=== PATIENT | female | born 1965 | race Caucasian/White ===

== ENCOUNTER 2016-08-06 10:55 | Emergency (ER) ==
[2016-08-06 11:11] LABS: MANUAL DIFF NEEDED? NO
[2016-08-06 11:12] LABS: BASO% 0.3 % (0.0-0.8); EOS# 0.07 X1000 (0.0-0.7); EOS% 0.6 % (0.0-10.0); HEMATOCRIT 46.2 % (37.0-47.0); IMM GRAN# 0.04 X1000 (0.0-0.04); IMM GRAN% 0.3 % (0.0-0.5); LYMPH# 1.89 X1000 (1.2-3.4); LYMPH% 15.4 % (20.5-51.1); MCH 30.2 PG (27-31); MCHC 34.6 g/dL (33-37); MCV 87.3 FL (81-99); MONO# 0.98 X1000 (0.11-0.59); MPV 10.7 FL (7.4-10.4); NEUT% 75.4 % (42.2-75.2); PLT 429 X1000 (130-400); RBC 5.29 XMIL (4.2-5.4)
[2016-08-06 11:30] LABS: AGAP 15; ALBUMIN 5.2 g/dL (3.5-5.0); ALKALINE PHOSPHATASE 117 U/L (32-104); BUN 10 mg/dL (8-22); CALCIUM 10.4 mg/dL (8.8-10.2); CHLORIDE 101 mmol/L (98-107); COSMO 278; GOT 32 U/L (10-30); GPT 23 U/L (10-36); POTASSIUM 3.4 mmol/L (3.5-5.1); SODIUM 139 mmol/L (136-145); TCO2 24 mmol/L (25-35); TOTAL PROTEIN 8.3 g/dL (6.3-8.3)
[2016-08-06 11:40] LABS: FREE T4 0.97 ng/dL (0.93-1.70)
--- NOTE | 2016-08-06 12:06 | PROVIDER DOCUMENTATION ---
HPI-Psychological Disorder <Velma Rojas - Last Filed: 08/06/16 12:42> <Ady Nunn - Last Filed: 08/06/16 19:54> - General Source: patient, EMS - History of Present Illness-Psych Onset/Duration: reports: 3 days ago Timing: reports: still present, getting worse Severity: reports: severe Situational problems related to:: reports: other (family) Psychiatric Complaints: reports: agitated, anxiety, depressed, frustrated, restlessness, suicidal ideation Substance Use: reports: none presently/history of abuse, alcohol Previous psych related hospitalizations?: Yes Patient arrived by:: police Similar Symptoms Previously?: Yes Recently seen or treated by another doctor?: No - Suicidal Ideation Suicide Risk Assessment: depressed, prior attempt, drug or ETOH abuse (hx), no social supports, frightened friends-family Clinician's estimation of suicide risk?: uncertain risk <Soni Wise - Last Filed: 08/06/16 19:55> - General Chief Complaint: Psych Stated Complaint: Psych,SI Time Seen by Provider: 08/06/16 12:05 Allergies/Adverse Reactions: Patient Allergies Allergy/AdvReac Type Severity Reaction Status Date / Time No Known Allergies Allergy Verified 08/06/16 11:00 Home Medications: Home Medication List Medication Instructions Recorded Confirmed Last Taken Type Fluoxetine HCl [Prozac] 60 mg PO QAM 03/10/16 08/06/16 03/03/16 07:00 History Lisinopril 20 mg PO DAILY 08/06/16 08/06/16 Unknown History - History of Present Illness-Psych Nature of Presenting Problem: 51 yo female presents to ER via EMS with c/o SI. Police were on scene. She is very emotional and changes expressions fast. She states that she is family issues saying "they know I take suboxone and that I called the ambulance and the police." When asked questions she responds "I don't want you caught up in the middle of it." She denies hallucinations. She has attempted suicide in the past but would not tell me how many times or how. (Soni Wise) Review of Systems - Adult - REVIEW OF SYSTEMS - ADULT Constitutional: reports: no symptoms reported Eyes: reports: no symptoms reported Ears, Nose, Mouth & Throat: reports: no symptoms reported Cardiovascular: reports: no symptoms reported Respiratory: reports: no symptoms reported Gastrointestinal: reports: no symptoms reported Genitourinary: reports: no symptoms reported Musculoskeletal: reports: no symptoms reported Integumentary: reports: no symptoms reported Neurological: reports: no symptoms reported Psychiatric: reports: see HPI, anxiety, suicidal thoughts Endocrine: reports: no symptoms reported Hematologic/Lymphatic: reports: no symptoms reported Allergic/Immunologic: reports: no symptoms reported All Other Systems: Reviewed and Negative <Wise. - Last Filed: 08/06/16 19:55> Past History - Adult - PAST MEDICAL HISTORY-ADULT Review of Records: reports: Old Records Reviewed, Nursing Assessment Review, Medications Reviewed, Social history reviewed & non-contributory. 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 on dangers of tobacco.: Discussed manners to quit use, and f/u contacts for add'l counseling. Substance Use: none presently/history of abuse, alcohol Alcohol Use Frequency: sober (former use) Living Situation: family <. - Last Filed: 08/06/16 19:55> Physical Exam-Psych Focus - Physical Exam-Psych Initial Vital Signs Reviewed: Yes Appearance: neat, alert, anxious, impaired insight, slow to respond Neurological: alert, oriented x 3, agitated, anxious, depressed affect, flat Behavior/Eye Contact/Speech: cooperative, avoids eye contact, refused to answer , decreased rate of speech Thoughts/Hallucinations: no apparent hallucination, flight of ideas, paranoid HENMT: normocephalic/atraumatic Respiratory: no respiratory distress Cardiovascular: normal peripheral pulses Extremity: normal gait, normal inspection, no pedal edema Integumentary: normal color, normal turgor, warm/dry <BillieSeptember. - Last Filed: 08/06/16 19:55> Progress - EKG 1 Time of EKG reading by physician:: 12:34 EKG Read and Signed by:: Zane Ashley EKG Interpretation (*Must complete 3 of following elements*): Normal Rate: 96 Rhythm: normal sinus rhythm [place]: normal QRS: normal ME Interval: normal ST Wave: normal <Velma Rojas - Last Filed: 08/06/16 12:42> <Ady Nunn - Last Filed: 08/06/16 19:54> - CHANGE OF SHIFT REPORT (ED Provider) Report Given and Care Transferred to:: Dr. Nunn Time of Transfer: 19:50 Items Pending: Other (psych placement) Tentative Impression of Patient: stable <BillieSeptember. - Last Filed: 08/06/16 19:55> - PLAN OF CARE/RESULTS Progress/Plan/Lab Results: 1449-[facility] called for evaluation. 1536-[facility] on the phone with patient. 1600-[facility] will try to find placement for patient. Laboratory Tests 08/06/16 08/06/16 08/06/16 11:00 11:00 11:00 WBC RBC Hgb Hct MCV MCH MCHC RDW Std Deviation Plt Count MPV Immature Gran % (Auto) Neut % (Auto) Lymph % (Auto) [place] % (Auto) Eos % (Auto) Baso % (Auto) Immature Gran # (Auto) Neut # (Auto) Lymph # (Auto) [place] # (Auto) Eos # (Auto) Baso # (Auto) Sodium 139 Potassium 3.4 L Chloride 101 Carbon Dioxide 24 L Anion Gap 15 BUN 10 Creatinine 0.7 Estimated GFR/1.73 m2 > 60 BUN/Creatinine Ratio 14 Glucose 132 H Calculated Osmolality 278 Calcium 10.4 H Total Bilirubin 0.30 AST 32 H ALT 23 Alkaline Phosphatase 117 H Total Protein 8.3 Albumin 5.2 H Globulin 3.0 Albumin/Globulin Ratio 2.0 TSH 1.32 Free T4 0.97 Urine Source Urine Color Urine Clarity Urine pH Ur Specific [place] Urine Protein Urine Ketones Urine Blood Urine Nitrite Urine Bilirubin Urine Urobilinogen Urine Microscopic RBC Urine WBC Urine Microscopic WBC Urine Bacteria Urine Glucose Salicylates Urine Opiates Screen Ur Oxycodone Screen Urine Methadone Screen Acetaminophen Ur Barbituates Screen Ur Tricyclics Screen Ur Phencyclidine Scrn Ur Amphetamines Screen U Methamphetamines Scrn Urine MDMA Screen U Benzodiazepines Scrn Urine Cocaine Screen U Cannabinoids Screen Plasma/Serum Ethyl Alc 08/06/16 08/06/16 08/06/16 11:00 11:00 14:11 WBC 12.30 H RBC 5.29 Hgb 16.0 Hct 46.2 MCV 87.3 MCH 30.2 MCHC 34.6 RDW Std Deviation 13.0 Plt Count 429 H MPV 10.7 H Immature Gran % (Auto) 0.3 Neut % (Auto) 75.4 H Lymph % (Auto) 15.4 L [place] % (Auto) 8.0 Eos % (Auto) 0.6 Baso % (Auto) 0.3 Immature Gran # (Auto) 0.04 Neut # (Auto) 9.28 H Lymph # (Auto) 1.89 [place] # (Auto) 0.98 H Eos # (Auto) 0.07 Baso # (Auto) 0.04 Sodium Potassium Chloride Carbon Dioxide Anion Gap BUN Creatinine Estimated GFR/1.73 m2 BUN/Creatinine Ratio Glucose Calculated Osmolality Calcium Total Bilirubin AST ALT Alkaline Phosphatase Total Protein Albumin Globulin Albumin/Globulin Ratio TSH Free T4 Urine Source VOIDED Urine Color YELLOW Urine Clarity SL. CLOUDY A Urine pH 6.0 Ur Specific [place] 1.015 Urine Protein 1+(30 mg/dL) A Urine Ketones 1+(Small) A Urine Blood TRACE Urine Nitrite NEGATIVE Urine Bilirubin NEGATIVE Urine Urobilinogen NORMAL Urine Microscopic RBC <10 Urine WBC TRACE A Urine Microscopic WBC <10 Urine Bacteria 1+ Urine Glucose TRACE(50 mg/dL) A Salicylates < 3.00 L Urine Opiates Screen Ur Oxycodone Screen Urine Methadone Screen Acetaminophen < 1.2 L Ur Barbituates Screen Ur Tricyclics Screen Ur Phencyclidine Scrn Ur Amphetamines Screen U Methamphetamines Scrn Urine MDMA Screen U Benzodiazepines Scrn Urine Cocaine Screen U Cannabinoids Screen Plasma/Serum Ethyl Alc 08/06/16 14:11 WBC RBC Hgb Hct MCV MCH MCHC RDW Std Deviation Plt Count MPV Immature Gran % (Auto) Neut % (Auto) Lymph % (Auto) [place] % (Auto) Eos % (Auto) Baso % (Auto) Immature Gran # (Auto) Neut # (Auto) Lymph # (Auto) [place] # (Auto) Eos # (Auto) Baso # (Auto) Sodium Potassium Chloride Carbon Dioxide Anion Gap BUN Creatinine Estimated GFR/1.73 m2 BUN/Creatinine Ratio Glucose Calculated Osmolality Calcium Total Bilirubin AST ALT Alkaline Phosphatase Total Protein Albumin Globulin Albumin/Globulin Ratio TSH Free T4 Urine Source Urine Color Urine Clarity Urine pH Ur Specific [place] Urine Protein Urine Ketones Urine Blood Urine Nitrite Urine Bilirubin Urine Urobilinogen Urine Microscopic RBC Urine WBC Urine Microscopic WBC Urine Bacteria Urine Glucose Salicylates Urine Opiates Screen NONE DETECTED Ur Oxycodone Screen NONE DETECTED Urine Methadone Screen NONE DETECTED Acetaminophen Ur Barbituates Screen NONE DETECTED Ur Tricyclics Screen NONE DETECTED Ur Phencyclidine Scrn NONE DETECTED Ur Amphetamines Screen NONE DETECTED U Methamphetamines Scrn NONE DETECTED Urine MDMA Screen NONE DETECTED U Benzodiazepines Scrn NONE DETECTED Urine Cocaine Screen NONE DETECTED U Cannabinoids Screen NONE DETECTED Plasma/Serum Ethyl Alc Orders Category Date Time Status [facility] [place] Communication Order DIRECTED Care 08/06/16 19:53 Active ACETAMINOPHEN [TDM] Stat Lab 08/06/16 11:00 Completed ALCOHOL BLOOD Stat Lab 08/06/16 11:00 Completed CBC WITH ELECTRONIC DIFF [HEME] Stat Lab 08/06/16 11:00 Completed COMPREHENSIVE METABOLIC PANEL [CHEM] Stat Lab 08/06/16 11:00 Completed FREE T4 Stat Lab 08/06/16 11:00 Results SALICYLATES [TDM] Stat Lab 08/06/16 11:00 Completed TSH Stat Lab 08/06/16 11:[address] W/POSS RFLX CULT [URINALYSIS] Stat Lab 08/06/16 14:11 Completed URINE CULTURE [RM] Routine Lab 08/06/16 14:[address] DRUG SCREEN [address] Stat Lab 08/06/16 14:11 Completed VITAMIN B12 Stat Lab 08/06/16 11:00 Results EKG [EKG] Stat Ther 08/06/16 12:13 Draft Vital Signs - 24 hr 08/06/16 10:55 Pulse Rate 101 H Respiratory 18 Rate Blood Pressure 175/129 O2 Sat by Pulse 100 Oximetry (BillieSoni Ruy.) Departure <Velma Rojas - Last Filed: 08/06/16 12:42> - Departure Certified Medical Emergency: Emergent <Ady Nunn - Last Filed: 08/06/16 19:54> - Departure Certified Medical Emergency: Emergent <Soni Wise - Last Filed: 08/06/16 19:55> - Departure DIAGNOSIS: Suicidal ideation, Uncontrolled hypertension Condition: Stable Referrals: None,PCP [Primary Care Provider] - Attestation - Scribe Verification/Attestation Scribe:: Velma Rojas Acting as Scribe for:: Soni Wise Scribe documention review:: This chart was documented by a scribe and accurately reflects the service the provider performed and the decisions made by the provider. <Velma Rojas - Last Filed: 08/06/16 12:42> - Physician/ JI Attestation Patient care was provided by Advanced Practice Provider:: Yes Advanced Practice Provider:: Soni Wise Advanced Practice Provider documentation review:: The Mid-level provider documentation, treatment plan and medical decision making was reviewed by the physician who agrees with all treatment and medical decision making by the MLP. <Soni Wise - Last Filed: 08/06/16 19:55> Physician Attestation - Physician Attestation I, the provider, attest to the following statement:: Soni Wise Physician documentation Attestation:: This documentation recorded by the scribe accurately reflects the service I personally performed and the decisions made by me. <Soni Wise - Last Filed: 08/06/16 19:55>
--- NOTE | 2016-08-06 12:42 | EKG Report ---
Test Performed on : 08/06/2016 12:34:34 PM Test Reason : PSYCH Blood Pressure : / mmHG Vent. Rate : 096 BPM Atrial Rate : 096 BPM P-R Int : 130 ms QRS Dur : 086 ms QT Int : 364 ms P-R-T Axes : 042 036 064 degrees QTc Int : 459 ms Normal sinus rhythm. Normal ECG When compared with ECG of 10-MAR-2016 21:41, No significant change was found Unconfirmed Result
[2016-08-06 12:49] LABS: ACETAMINOPHEN < 1.2 ug/mL (10-30)
[2016-08-06 14:18] LABS: URINE SOURCE VOIDED
[2016-08-06 14:45] LABS: BILIRUBIN URINE NEGATIVE (NEGATIVE); BLOOD URINE TRACE (NEGATIVE); CLARITY SL. CLOUDY (CLEAR); COLOR YELLOW; LEUKOCYTES URINE TRACE (NEGATIVE); NITRITE URINE NEGATIVE (NEGATIVE); PROTEIN URINE 1+(30 mg/dL) mg/dL (NEGATIVE); SP GRAVITY URINE 1.015; UR AMPHETAMINES QUAL NONE DETECTED (NONE DETECT); UR BARBITUATES QUAL NONE DETECTED (NONE DETECT); UR BENZODIAZEPIN QUAL NONE DETECTED (NONE DETECT); UR CANNABINOIDS QUAL NONE DETECTED (NONE DETECT); UR COCAINE QUAL NONE DETECTED (NONE DETECT); UR MDMA QUAL NONE DETECTED (NONE DETECT); UR METHADONE QUAL NONE DETECTED (NONE DETECT); UR METHAMPHETAMINE QUAL NONE DETECTED (NONE DETECT); UR OPIATES QUAL NONE DETECTED (NONE DETECT); UR OXYCODONE QUAL NONE DETECTED (NONE DETECT); UR PCP QUAL NONE DETECTED (NONE DETECT); UR TCA QUAL NONE DETECTED (NONE DETECT); UROBILINOGEN URINE NORMAL
[2016-08-06 14:46] LABS: URINE CULTURE PL NEEDED? YES; URINE RBC <10 /HPF (<10); URINE WBC <10 /HPF (<10)
[2016-08-06] MEDS ORDERED: PRINIVIL PO ONE (20:02)
[2016-08-06] MEDS ORDERED: PRINIVIL ONE (20:02)
[2016-08-07] MEDS ORDERED: STERILE WATER INJ. INJ ONE (01:05)
[2016-08-07] MEDS ORDERED: GEODON IM ONE (01:05)
[2016-08-07] MEDS ORDERED: ATIVAN IM ONE (01:05)
[2016-08-07 05:49] LABS: HDL 93 mg/dL (45-65); LDL 196 mg/dL; TRIGLYCERIDES 72 mg/dL (35-135); VLDL 14 mg/dL
[2016-08-07 09:07] VITALS: BP 141/93
[2016-08-07] MEDS ORDERED: KLOR-CON PO ONE (09:29)
[2016-08-07] MEDS ORDERED: SEPTRA DS PO ONE (09:29)
[2016-08-07] MEDS ORDERED: TYLENOL ONE (10:00)
[2016-08-07] MEDS ORDERED: TYLENOL PO ONE (10:00)
== END 2016-08-07 10:07 ==
LOC: P.ED 10:55
DX: R45.851 Suicidal ideations (principal); I10 Essential (primary) hypertension; F41.9 Anxiety disorder, unspecified; M19.90 Unspecified osteoarthritis, unspecified site; F32.9 Major depressive disorder, single episode, unspecified; Z86.14 Personal history of Methicillin resistant Staphylococcus aureus infection; F17.210 Nicotine dependence, cigarettes, uncomplicated; Z71.6 Tobacco abuse counseling; Z79.899 Other long term (current) drug therapy
CPT/HCPCS: 80053; 80061; 80305; 81001; 82607; 84439; 84443; 85025; 87088; 93005; 96372; G0480; J2060; J3486; 80320; 80324; 80329